=== PATIENT | female | born 1960 | race Caucasian/White ===

== ENCOUNTER → 2022-07-29 | Outpatient (CLI) | payer MEDICAID ==
--- NOTE | 2022-07-29 15:49 | CT ---
EXAMINATION TYPE: CT abdomen pelvis wo con CT DLP: 352.2 mGycm, Automated exposure control for dose reduction was used. DATE OF EXAM: 07/29/2022 3:35 PM COMPARISON: None CLINICAL INDICATION:Female, 62 years old with history of R10.31; abdominal pain following heavy lifti ng TECHNIQUE: Standard CT of the abdomen and pelvis following the administration of oral contrast. Cor onal and sagittal reformats were performed. FINDINGS: Evaluation is limited due to lack of IV contrast. LOWER CHEST: Minimal right lower lobe linear scarring or atelectasis. Partial visualization of bilate ral breast prosthesis. ABDOMEN LIVER: Unremarkable noncontrast appearance. GALLBLADDER AND BILE DUCTS: Unremarkable. PANCREAS: Unremarkable noncontrast appearance. SPLEEN: Unremarkable noncontrast appearance. ADRENAL GLANDS: Unremarkable noncontrast appearance. KIDNEYS AND URETERS: No evidence of hydronephrosis or renal calculus. Bilateral extrarenal pelvises. Tiny calcification along the proximal right ureter favored to represent a phlebolith. PELVIS BLADDER: Unremarkable REPRODUCTIVE: The uterus is surgically absent. No suspicious adnexal mass. ABDOMEN & PELVIS STOMACH AND BOWEL: Stomach and duodenum are unremarkable.Enteric contrast reaches the ileocecal valve . No focal wall thickening or surrounding inflammatory changes. No evidence of bowel obstruction. PERITONEUM: No evidence of pneumoperitoneum or free fluid. VASCULATURE: No evidence of aortic aneurysm. Few pelvic phlebolith. MUSCULOSKELETAL: No acute osseous abnormalities. Broad-based disc bulge with at least mild effacement of anterior thecal sac at L4-L5. LYMPH NODES: No gross evidence for lymphadenopathy. SOFT TISSUE/ABDOMINAL WALL: Unremarkable IMPRESSION: 1. No acute intra-abdominal/pelvic process. 2. Disc bulge at L4-L5 with suggested mild narrowing of the anterior thecal sac. This can be further evaluated with MR lumbar spine as clinically indicated.
== END | disposition home or self-care (01) ==
LOC: RADCTMAIN 13:43
PROVIDERS: ATTEND Family Medicine
DX: M51.26 Other intervertebral disc displacement, lumbar region (principal); R10.31 Right lower quadrant pain; Z85.3 Personal history of malignant neoplasm of breast
CPT/HCPCS: 74176